=== PATIENT | female | born 1980 | race Caucasian/White ===

== ENCOUNTER → 2020-12-25 | Outpatient (CLI) | payer OTHER ==
[~2020-12-25] MED LIST: NAPROSYN500 MG PO
== END ==
LOC: RAD 09:00 → MRI 09:45
DX: S43.431A Superior glenoid labrum lesion of right shoulder, initial encounter (principal); X58.XXXA Exposure to other specified factors, initial encounter
CPT/HCPCS: 73040; 73222; A9577; Q9962

== ENCOUNTER 2021-02-19 15:37 | Emergency (ER) | payer OTHER | END 2021-02-19 17:30 | disposition home or self-care (01) | LOC: ER1 15:37 | DX: U07.1 COVID-19 (principal); J45.909 Unspecified asthma, uncomplicated; Z88.6 Allergy status to analgesic agent; Z91.048 Other nonmedicinal substance allergy status | CPT/HCPCS: 0240U; 71045; 99283 ==

== ENCOUNTER → 2021-07-03 | Outpatient (CLI) | payer OTHER ==
[~2021-07-03] MED LIST changes: +IBUPROFEN600 MG PO
== END ==
LOC: RAD 05-15 10:00 → MRI 05-15 10:00 → RAD 08:13
DX: S43.431A Superior glenoid labrum lesion of right shoulder, initial encounter (principal); X58.XXXA Exposure to other specified factors, initial encounter
CPT/HCPCS: 73040; 73222; A9577; Q9967

== ENCOUNTER 2021-07-04 08:02 | Emergency (ER) | payer OTHER ==
[~2021-07-04 08:02] MED LIST changes: -IBUPROFEN600 MG PO
[2021-07-04] MEDS ORDERED: IBUPROFEN600 MG PO (09:32)
== END 2021-07-04 09:43 | disposition home or self-care (01) ==
LOC: ER1 08:02
DX: S93.402A Sprain of unspecified ligament of left ankle, initial encounter (principal); X50.9XXA Other and unspecified overexertion or strenuous movements or postures, initial encounter
CPT/HCPCS: 73610; 73630; 99283

== ENCOUNTER → 2021-12-01 | Outpatient (CLI) | payer OTHER ==
[~2021-12-01] MED LIST changes: +IBUPROFEN600 MG PO
== END ==
LOC: KOH-I 10:26
DX: M54.12 Radiculopathy, cervical region (principal); M48.02 Spinal stenosis, cervical region
CPT/HCPCS: 72141

== ENCOUNTER → 2022-04-29 | Outpatient (CLI) | payer OTHER | LOC: KOH-I 09:32 | DX: S83.511A Sprain of anterior cruciate ligament of right knee, initial encounter (principal); M25.461 Effusion, right knee | CPT/HCPCS: 73721 ==